=== PATIENT | female | born 1995 | race Caucasian/White ===

== ENCOUNTER 2018-05-22 17:36 | Emergency (ER) | payer SELFPAY ==
[~2018-05-22] VITALS: Ht 157.5 cm; Wt 50.0 kg
[~2018-05-22 17:36] MED LIST: DICYCLOMINE; LOPERAMIDE; PROCHLORPERAZINE
[2018-05-22] MEDS ORDERED: IBUPROFEN 800MG TABLET PO ONE (21:45)
[2018-05-22 22:49] VITALS: BP 119/70
== END 2018-05-22 23:00 | disposition home or self-care (01) ==
LOC: ER 17:36
DX: J02.9 Acute pharyngitis, unspecified (principal); D64.9 Anemia, unspecified; J45.909 Unspecified asthma, uncomplicated
CPT/HCPCS: 81025; 87070; 87430; 99284